=== PATIENT | male | born 1985 | race Two or more races ===

== ENCOUNTER 2019-11-16 22:35 | Emergency (ER) | payer SELFPAY ==
[~2019-11-16] VITALS: Ht 157.5 cm; Wt 65.0 kg
--- NOTE | 2019-11-16 23:26 | RAD ---
INDICATION: Reason: nail gun injury pain / Spl. Instructions: / History: COMPARISON: None. IMPRESSION: Left foot: 3 views obtained. No acute fracture or dislocation. Suspected tibiotalar joint effusion. Electronically signed by: True Meyer MD (11/16/2019 11:23 PM) [id number]
[2019-11-16 23:50] VITALS: BP 146/84
[2019-11-17] MEDS ORDERED: CIPR500S2 PO (00:13)
[2019-11-17] MEDS ORDERED: TRAM-48 PO (00:13)
--- NOTE | 2019-11-17 00:14 | PHYS DOC ---
General Adult EDM: Chief Complaint: FOOT INJURY PAIN HPI: HPI: Patient is a 34 year old male presents with a chief complaint of left foot pain. Patient states this afternoon he was at work when nail went through his shoe and into his foot. Patient states nail pierced the skin in between his left great toe and the webbing. Patient states he pulled the nail out. Review of Systems: Review of Systems: Constitutional: Denies fever or chills. [] Eyes: Denies change in visual acuity. [] HENT: Denies nasal congestion or sore throat. [] Respiratory: Denies cough or shortness of breath. [] Cardiovascular: Denies chest pain or edema. [] GI: Denies abdominal pain, nausea, vomiting, bloody stools or diarrhea. [] : Denies dysuria. [] Musculoskeletal: Denies back pain or joint pain. [Positive foot pain positive foot swelling] Integument: Denies rash. [] Neurologic: Denies headache, focal weakness or sensory changes. [] Endocrine: Denies polyuria or polydipsia. [] Lymphatic: Denies swollen glands. [] Psychiatric: Denies depression or anxiety. [] Heart Score: Risk Factors: Risk Factors: DM, Current or recent (<one month) smoker, HTN, HLP, family history of CAD, obesity. Risk Scores: Score 0 - 3: 2.5% MACE over next 6 weeks - Discharge Home Score 4 - 6: 20.3% MACE over next 6 weeks - Admit for Clinical Observation Score 7 - 10: 72.7% MACE over next 6 weeks - Early Invasive Strategies Physical Exam: PE: Constitutional: Well developed, well nourished, no acute distress, non-toxic appearance. [] HENT: Normocephalic, atraumatic, bilateral external ears normal, oropharynx moist, no oral exudates, nose normal. [] Eyes: PERRLA, EOMI, conjunctiva normal, no discharge. [] Neck: Normal range of motion, no tenderness, supple, no stridor. [] Cardiovascular:Heart rate regular rhythm, no murmur [] Lungs & Thorax: Bilateral breath sounds clear to auscultation [] Abdomen: Bowel sounds normal, soft, no tenderness, no masses, no pulsatile masses. [] Skin: Warm, dry, no erythema, no rash. [Puncture wound left foot webbing between left great toe and second toe. No active bleeding there is some swelling area is tender to palpation there is no overlying erythema] Back: No tenderness, no CVA tenderness. [] Extremities: No tenderness, no cyanosis, no clubbing, ROM intact, no edema. [] Neurologic: Alert and oriented X 3, normal motor function, normal sensory function, no focal deficits noted. [] Psychologic: Affect normal, judgement normal, mood normal. [] EKG: EKG: [] Radiology/Procedures: Radiology/Procedures: [] Impression: X-ray no acute fractures Course & Med Decision Making: Course & Med Decision Making Pertinent Labs and Imaging studies reviewed. (See chart for details) [] Patient's tetanus will be updated. Patient will be discharged home on Cipro. Patient to take Tylenol and ibuprofen as needed for pain. Patient will also be prescribed Ultram. Dragon Disclaimer: Dragon Disclaimer: This electronic medical record was generated, in whole or in part, using a voice recognition dictation system. Departure Departure Impression: Primary Impression: Puncture wound Disposition: HOME, SELF-CARE Condition: STABLE Patient Instructions: Puncture Wound Scripts Tramadol Hcl (ULTRAM) 50 Mg Tablet 1 TAB PO PRN Q6HRS PRN for pain MDD 4 Tablet(s) for 7 Days, #28 TAB 0 Refills Prov: REANNA REECE DO 11/17/19 Ciprofloxacin (CIPRO) 500 Mg/5 Ml [facility].rec 500 MG PO BID for 10 Days, SUSPENSION Prov: REANNA REECE DO 11/17/19 Justicifation of Admission Dx: Justifications for Admission: Justification of Admission Dx: N/A REANNA REECE DO Nov 17, 2019 00:14
[2019-11-17] MEDS ORDERED: TETANUS AND DIPHTHERIA TOX/PF 0.5 ML DISP.SYRIN. VAX IM ONE (01:00)
== END 2019-11-17 01:00 | disposition home or self-care (01) ==
LOC: ER 22:35
DX: S91.332A Puncture wound without foreign body, left foot, initial encounter (principal); W45.0XXA Nail entering through skin, initial encounter; Y93.89 Activity, other specified; Y92.69 Other specified industrial and construction area as the place of occurrence of the external cause; Y99.8 Other external cause status
CPT/HCPCS: 73630; 90471; 90714; 99283